=== PATIENT | female | born 1960 | race Two or more races ===

== ENCOUNTER 2022-04-22 10:14 | Emergency (ER) | payer OTHER ==
[~2022-04-22] VITALS: Ht 154.9 cm; Wt 97.5 kg
[2022-04-22] MEDS ORDERED: CITALOPRAM HBR20 MG PO (11:01)
[2022-04-22] MEDS ORDERED: DICLOFENAC POTA50 MG PO (11:01)
[2022-04-22] MEDS ORDERED: GABAPENTIN800 M1 PO (11:01)
[2022-04-22] MEDS ORDERED: BUPROPION XL150 MG PO (11:01)
== END 2022-04-22 14:26 | disposition home or self-care (01) ==
LOC: ER 10:14
DX: M54.59 Other low back pain (principal); Z88.2 Allergy status to sulfonamides; M16.12 Unilateral primary osteoarthritis, left hip